=== PATIENT | male | born 1965 | race Native Hawaiian/Other Pacific Islander ===

== ENCOUNTER 2016-11-24 15:09 | Emergency (ER) | payer OTHER ==
[~2016-11-24] VITALS: Ht 172.7 cm; Wt 69.4 kg
[2016-11-24] MEDS ORDERED: VERA80TAB PO (15:21)
[2016-11-24] MEDS ORDERED: OMEP20CA PO (15:22)
[2016-11-24] MEDS ORDERED: LOPRESSOR100 MG PO (15:22)
[2016-11-24] MEDS ORDERED: ASA LOW DOSE81 MG OR (15:23)
== END 2016-11-24 16:57 | disposition home or self-care (01) ==
LOC: ED 15:09
PROC: 0H9QXZZ Drainage of Finger Nail, External Approach (ICD-10-PCS; principal; 2016-11-24)
DX: S67.02XA Crushing injury of left thumb, initial encounter (principal); S60.112A Contusion of left thumb with damage to nail, initial encounter; X58.XXXA Exposure to other specified factors, initial encounter; Y92.098 Other place in other non-institutional residence as the place of occurrence of the external cause
CPT/HCPCS: 36415; 96372; 99283; J1885